=== PATIENT | female | born 1930 | race Caucasian/White ===

== ENCOUNTER 2016-11-22 08:00 | Outpatient (CLI) | payer MEDICARE ==
[2016-11-22 13:01] LABS: BASOPHILS # (AUTO) 0.1 10^3/uL (0.0-0.1); BASOPHILS % (AUTO) 0.8 %; EOSINOPHILS # (AUTO) 0.1 10^3/uL (0.0-0.7); EOSINOPHILS % (AUTO) 1.3 %; HCT - HEMATOCRIT 35.9 % (37.0-47.0); HGB - HEMOGLOBIN 12.5 g/dL (12.0-16.0); LYMPHOCYTES # (AUTO) 1.6 10^3/uL (1.5-3.5); LYMPHOCYTES % (AUTO) 24.5 %; MEAN CORPUSCULAR HEMOGLOBIN 32.7 pg (27.0-31.0); MEAN CORPUSCULAR HGB CONC 34.9 g/dL (32.0-36.0); MEAN CORPUSCULAR VOLUME 93.6 fL (81.0-99.0); MEAN PLATELET VOLUME 7.6 fL (7.9-10.8); MONOCYTES # (AUTO) 0.4 10^3/uL (0.0-1.0); MONOCYTES % (AUTO) 6.5 %; NEUTROPHILS # (AUTO) 4.5 10^3/uL (1.5-6.6); NEUTROPHILS % (AUTO) 66.9 %; NUCLEATED RED BLOOD CELLS AUTO 0.1 /100WBC; RED BLOOD COUNT 3.83 10^6/uL (4.20-5.40); RED CELL DISTRIBUTION WIDTH 12.6 % (12.0-15.0); UNCORRECTED WHITE BLOOD COUNT 6.7 x10^3/uL; WHITE BLOOD COUNT 6.7 x10^3/uL (4.8-10.8)
[2016-11-22 13:34] LABS: ALBUMIN/GLOBULIN RATIO 1.6 (1.0-2.2); BILIRUBIN,TOTAL 0.8 mg/dL (0.2-1.0); BUN - BLOOD UREA NITROGEN 23 mg/dL (6-20); CALCIUM 10.2 mg/dL (8.5-10.3); CARBON DIOXIDE - CO2 28 mmol/L (21-32); CHLORIDE 101 mmol/L (101-111); CHOL/HDL RATIO 4.9 (<4.4); CHOLESTEROL 290 mg/dL; CREATININE 1.2 mg/dL (0.4-1.0); GFR - MDRD 43 (>89); GLUCOSE 111 mg/dL (70-100); HDL CHOLESTEROL 59 mg/dL; LDL/HDL RATIO 3.1 (<4.4); POTASSIUM 4.1 mmol/L (3.5-5.0); SODIUM 140 mmol/L (135-145); TOTAL PROTEIN 8.3 g/dL (6.7-8.2); TRIGLYCERIDES 233 mg/dL; VLDL CHOLESTEROL 47 mg/dL
== END 2016-11-22 08:01 | disposition home or self-care (01) ==
LOC: LAB.WCP 08:00
PROVIDERS: ATTEND Family Medicine
DX: K21.9 Gastro-esophageal reflux disease without esophagitis (principal); E78.5 Hyperlipidemia, unspecified; D50.9 Iron deficiency anemia, unspecified
CPT/HCPCS: 36415; 80053; 80061; 85025

== ENCOUNTER → 2016-11-30 | Outpatient (CLI) | payer MEDICARE ==
[2016-11-30 13:51] LABS: THYROID STIMULATING HORMONE 1.09 uIU/mL (0.34-5.60)
== END ==
LOC: LAB.WCP 08:00
PROVIDERS: ATTEND Family Medicine
DX: R41.3 Other amnesia (principal)
CPT/HCPCS: 36415; 82607; 84443

== ENCOUNTER 2017-12-20 09:56 | Outpatient (CLI) | payer MEDICARE ==
[2017-12-20 12:51] LABS: BASOPHILS % (AUTO) 0.8 %; EOSINOPHILS # (AUTO) 0.1 10^3/uL (0.0-0.7); EOSINOPHILS % (AUTO) 1.9 %; HGB - HEMOGLOBIN 12.4 g/dL (12.0-16.0); LYMPHOCYTES # (AUTO) 1.6 10^3/uL (1.5-3.5); LYMPHOCYTES % (AUTO) 26.6 %; MEAN CORPUSCULAR HEMOGLOBIN 32.7 pg (27.0-31.0); MEAN CORPUSCULAR HGB CONC 33.9 g/dL (32.0-36.0); MEAN CORPUSCULAR VOLUME 96.5 fL (81.0-99.0); MEAN PLATELET VOLUME 7.6 fL (7.9-10.8); MONOCYTES # (AUTO) 0.4 10^3/uL (0.0-1.0); MONOCYTES % (AUTO) 5.8 %; NEUTROPHILS % (AUTO) 64.9 %; PLT - PLATELET COUNT 226 10^3/uL (130-450); RED CELL DISTRIBUTION WIDTH 13.2 % (12.0-15.0); WHITE BLOOD COUNT 6.2 x10^3/uL (4.8-10.8)
[2017-12-20 12:56] LABS: HB2 TOTAL 13.5 g/dL; HEMOGLOBIN A1C 0.49 g/dL; HEMOGLOBIN A1C % 5.5 % (4.6-6.2)
[2017-12-20 13:02] LABS: ALBUMIN 4.1 g/dL (3.2-5.5); ALBUMIN/GLOBULIN RATIO 1.1 (1.0-2.2); ALKALINE PHOSPHATASE 44 IU/L (42-121); ALT ALANINE AMINOTRANSFERASE 20 IU/L (10-60); AST ASPARTATE AMINOTRANSFERASE 20 IU/L (10-42); BILIRUBIN,TOTAL 0.6 mg/dL (0.2-1.0); BUN - BLOOD UREA NITROGEN 24 mg/dL (6-20); CALCIUM 9.6 mg/dL (8.5-10.3); CARBON DIOXIDE - CO2 27 mmol/L (21-32); CHLORIDE 103 mmol/L (101-111); CHOL/HDL RATIO 4.3 (<4.4); CHOLESTEROL 252 mg/dL; CREATININE 1.3 mg/dL (0.4-1.0); GFR - MDRD 39 (>89); GLUCOSE 106 mg/dL (70-100); HDL CHOLESTEROL 59 mg/dL; LDL CHOLESTEROL,CALCULATED 155 mg/dL; LDL/HDL RATIO 2.6 (<4.4); SODIUM 137 mmol/L (135-145); TOTAL PROTEIN 7.8 g/dL (6.7-8.2); VLDL CHOLESTEROL 38 mg/dL
== END 2017-12-20 09:57 | disposition home or self-care (01) ==
LOC: LAB.WCP 09:56
PROVIDERS: ATTEND Physician Assistant Medical
DX: E78.9 Disorder of lipoprotein metabolism, unspecified (principal); I10 Essential (primary) hypertension; R73.9 Hyperglycemia, unspecified; E78.5 Hyperlipidemia, unspecified
CPT/HCPCS: 36415; 80053; 80061; 83036; 83721; 85025

== ENCOUNTER 2019-01-09 08:00 | Outpatient (CLI) | payer MEDICARE ==
[2019-01-09 12:55] LABS: BASOPHILS % (AUTO) 0.4 %; EOSINOPHILS # (AUTO) 0.1 10^3/uL (0.0-0.7); EOSINOPHILS % (AUTO) 1.6 %; HGB - HEMOGLOBIN 12.3 g/dL (12.0-16.0); LYMPHOCYTES # (AUTO) 1.9 10^3/uL (1.5-3.5); LYMPHOCYTES % (AUTO) 27.1 %; MEAN CORPUSCULAR HGB CONC 32.5 g/dL (32.0-36.0); MEAN CORPUSCULAR VOLUME 98.7 fL (81.0-99.0); MEAN PLATELET VOLUME 9.8 fL (7.9-10.8); MONOCYTES # (AUTO) 0.6 10^3/uL (0.0-1.0); MONOCYTES % (AUTO) 9.2 %; NEUTROPHILS # (AUTO) 4.2 10^3/uL (1.5-6.6); NEUTROPHILS % (AUTO) 61.1 %; PLT - PLATELET COUNT 231 10^3/uL (130-450); RED BLOOD COUNT 3.84 10^6/uL (4.20-5.40); RED CELL DISTRIBUTION WIDTH 12.5 % (12.0-15.0); WHITE BLOOD COUNT 6.9 x10^3/uL (4.8-10.8)
[2019-01-09 13:13] LABS: HB2 TOTAL 13.7 g/dL; HEMOGLOBIN A1C 0.55 g/dL; HEMOGLOBIN A1C % 5.8 % (4.6-6.2)
[2019-01-09 13:31] LABS: % IRON SATURATION 30 % (20-50); ALBUMIN 4.5 g/dL (3.2-5.5); ALBUMIN/GLOBULIN RATIO 1.5 (1.0-2.2); ALKALINE PHOSPHATASE 45 IU/L (42-121); ALT ALANINE AMINOTRANSFERASE 16 IU/L (10-60); AST ASPARTATE AMINOTRANSFERASE 18 IU/L (10-42); BILIRUBIN,TOTAL 0.9 mg/dL (0.2-1.0); BUN - BLOOD UREA NITROGEN 26 mg/dL (6-20); CALCIUM 10.1 mg/dL (8.5-10.3); CARBON DIOXIDE - CO2 27 mmol/L (21-32); CHLORIDE 103 mmol/L (101-111); CHOL/HDL RATIO 4.5 (<4.4); CHOLESTEROL 255 mg/dL; CREATININE 1.2 mg/dL (0.4-1.0); GFR - MDRD 43 (>89); GLUCOSE 104 mg/dL (70-100); HDL CHOLESTEROL 57 mg/dL; IRON 95 ug/dL (28-170); LDL CHOLESTEROL,CALCULATED 161 mg/dL; LDL/HDL RATIO 2.8 (<4.4); SODIUM 140 mmol/L (135-145); TOTAL IRON BINDING CAPACITY 316 ug/dL (250-450); TOTAL PROTEIN 7.6 g/dL (6.7-8.2); TRANSFERRIN 226 mg/dL (192-382); VLDL CHOLESTEROL 37 mg/dL
[2019-01-09 14:18] LABS: PLATELET ESTIMATE, MANUAL NORMAL (130-450,000) (NORMAL); PLATELET MORPHOLOGY NORMAL APPEARANCE (NORMAL); RBC MORPHOLOGY (MULTIPLE) NORMAL APPEARANCE (NORMAL)
== END 2019-01-09 23:59 | disposition home or self-care (01) ==
LOC: LAB.WCP 08:00
PROVIDERS: ATTEND Family Medicine
DX: J44.9 Chronic obstructive pulmonary disease, unspecified (principal); I10 Essential (primary) hypertension; E78.5 Hyperlipidemia, unspecified; D50.9 Iron deficiency anemia, unspecified; K21.9 Gastro-esophageal reflux disease without esophagitis; R73.9 Hyperglycemia, unspecified
CPT/HCPCS: 36415; 80053; 80061; 82728; 83036; 83540; 83721; 84443; 84466; 85025

== ENCOUNTER 2020-05-15 08:00 | Outpatient (CLI) | payer MEDICARE ==
[2020-05-15 17:04] LABS: BILIRUBIN,URINE NEGATIVE (NEGATIVE); GLUCOSE, URINE (UA) NEGATIVE (NEGATIVE); KETONES,URINE (UA) NEGATIVE (NEGATIVE); LEUKOCYTE ESTERASE, URINE SMALL (NEGATIVE); NITRITE,URINE NEGATIVE (NEGATIVE); OCCULT BLOOD,URINE NEGATIVE (NEGATIVE); PH,URINE 6.5 PH (5.0-7.5); PROTEIN,URINE NEGATIVE (NEGATIVE); UROBILINOGEN,URINE 0.2 (NORMAL) E.U./dL (NORMAL)
[2020-05-15 17:16] LABS: CLARITY,URINE CLEAR (CLEAR)
[2020-05-15 17:17] LABS: BACTERIA,URINE Rare /HPF (None Seen); EPITHELIAL CELLS,UR FEW Transitional /HPF (<= Few); RBC,URINE None Seen /HPF (0-5); SQUAMOUS EPITHELIAL CELL,UR RARE Squamous (<= Few); WBC CLUMPS,URINE PRESENT
== END 2020-05-15 23:59 | disposition home or self-care (01) ==
LOC: LAB.N 08:00
PROVIDERS: ATTEND Family Medicine
DX: R10.9 Unspecified abdominal pain (principal)
CPT/HCPCS: 81001; 87086

== ENCOUNTER 2020-08-25 08:00 | Outpatient (CLI) | payer MEDICARE ==
[2020-08-25 18:29] LABS: BASOPHILS # (AUTO) 0.1 10^3/uL (0.0-0.1); BASOPHILS % (AUTO) 0.7 %; EOSINOPHILS # (AUTO) 0.1 10^3/uL (0.0-0.7); EOSINOPHILS % (AUTO) 1.4 %; HCT - HEMATOCRIT 40.1 % (37.0-47.0); HGB - HEMOGLOBIN 12.5 g/dL (12.0-16.0); LYMPHOCYTES # (AUTO) 1.5 10^3/uL (1.5-3.5); MEAN CORPUSCULAR HEMOGLOBIN 31.3 pg (27.0-31.0); MEAN CORPUSCULAR HGB CONC 31.2 g/dL (32.0-36.0); MEAN CORPUSCULAR VOLUME 100.3 fL (81.0-99.0); MEAN PLATELET VOLUME 9.5 fL (7.9-10.8); MONOCYTES # (AUTO) 0.5 10^3/uL (0.0-1.0); MONOCYTES % (AUTO) 6.1 %; NEUTROPHILS # (AUTO) 5.8 10^3/uL (1.5-6.6); NEUTROPHILS % (AUTO) 72.6 %; PLT - PLATELET COUNT 287 10^3/uL (130-450); RED CELL DISTRIBUTION WIDTH 12.7 % (12.0-15.0); WHITE BLOOD COUNT 8.1 x10^3/uL (4.8-10.8)
[2020-08-25 19:02] LABS: ALKALINE PHOSPHATASE 79 IU/L (42-121); ALT ALANINE AMINOTRANSFERASE 14 IU/L (10-60); AST ASPARTATE AMINOTRANSFERASE 14 IU/L (10-42); BILIRUBIN,TOTAL 0.8 mg/dL (0.2-1.0); BUN - BLOOD UREA NITROGEN 24 mg/dL (6-20); CALCIUM 9.9 mg/dL (8.5-10.3); CARBON DIOXIDE - CO2 30 mmol/L (21-32); CHLORIDE 101 mmol/L (101-111); CHOL/HDL RATIO 4.4 (<4.4); CHOLESTEROL 260 mg/dL; CREATININE 1.1 mg/dL (0.4-1.0); GFR - MDRD 47 (>89); GLUCOSE 156 mg/dL (70-100); HDL CHOLESTEROL 59 mg/dL; LDL CHOLESTEROL,CALCULATED 162 mg/dL; LDL/HDL RATIO 2.7 (<4.4); POTASSIUM 3.9 mmol/L (3.5-5.0); SODIUM 140 mmol/L (135-145); THYROID STIMULATING HORMONE 2.16 uIU/mL (0.34-5.60); TOTAL PROTEIN 7.9 g/dL (6.7-8.2); TRIGLYCERIDES 193 mg/dL; VLDL CHOLESTEROL 39 mg/dL
[2020-08-25 20:27] LABS: ESTIMATED AVERAGE GLUCOSE 120 mg/dL (70-100); HEMOGLOBIN A1c% 5.8 % (4.27-6.07)
== END 2020-08-25 23:59 | disposition home or self-care (01) ==
LOC: LAB.WCP 08:00
PROVIDERS: ATTEND Internal Medicine
DX: R60.9 Edema, unspecified (principal); D50.9 Iron deficiency anemia, unspecified; I10 Essential (primary) hypertension; R73.9 Hyperglycemia, unspecified; E78.5 Hyperlipidemia, unspecified; Z13.29 Encounter for screening for other suspected endocrine disorder
CPT/HCPCS: 36415; 80053; 80061; 82043; 82570; 83036; 83721; 84443; 85025

== ENCOUNTER 2020-08-26 08:00 | Outpatient (CLI) | payer MEDICARE ==
[2020-08-26 18:21] LABS: CREATININE,URINE 139.1 mg/dL; MICROALBUM/CREATININE RATIO,UR 13.7 ug/mg (<30.0); MICROALBUMIN,URINE 1.9 mg/dL (0-300.0)
== END 2020-08-26 23:59 | disposition home or self-care (01) ==
LOC: LAB.WCP 08:00
PROVIDERS: ATTEND Internal Medicine
DX: R73.9 Hyperglycemia, unspecified (principal)
CPT/HCPCS: 82043; 82570

== ENCOUNTER 2021-03-18 10:40 | Outpatient (CLI) | payer MEDICARE | END 2021-03-18 10:41 | disposition critical access hospital (66) | LOC: EMS 10:40 | DX: R53.1 Weakness (principal); R63.8 Other symptoms and signs concerning food and fluid intake | CPT/HCPCS: A0425; A0429 ==

== ENCOUNTER 2021-03-18 11:20 | Emergency (ER) | payer MEDICARE ==
[2021-03-18] MEDS ORDERED: SODIUM CHLORIDE 0.9% 1,000 ML IV STA ×2 (11:47→14:11)
--- NOTE | 2021-03-18 11:48 | ED Physician Documentation ---
History of Present Illness - Stated complaint Stated Complaint: Weakness - Chief complaint Chief Complaint: General - Additonal information Additional information: 89-year-old female, whose pmh is most significant for htn and hyperlipidemia, is brought to the emergency department for evaluation of increasing weakness and multiple falls. The patient states to this provider that she has lost her appetite over the last 3 days but is denying chest pain, soa, abdominal pain, nausea, vomiting, dysuria, urgency or frequency. She states that she has fallen multiple times recently but does not have any aches or pains in her joints or extremities. She states that she knows she needs to use a walker and does not always use it. There is no focal deficit. Patient states that she feels well otherwise. Review of Systems Constitutional: denies: Fever, Chills Eyes: reports: Reviewed and negative Nose: reports: Reviewed and negative Throat: reports: Reviewed and negative Cardiac: reports: Reviewed and negative Respiratory: reports: Reviewed and negative GI: denies: Abdominal Pain, Nausea, Vomiting, Diarrhea : denies: Dysuria, Frequency, Hesitancy Skin: denies: Rash, Lesions Musculoskeletal: denies: Neck pain, Back pain PD PAST MEDICAL HISTORY - Past Medical History Cardiovascular: Hypertension Respiratory: None Endocrine/Autoimmune: None GI: Chronic constipation : Frequency HEENT: Glaucoma Psych: None Musculoskeletal: Osteoarthritis, Osteoporosis Derm: None - Past Surgical History Past Surgical History: Yes Ortho: 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 HEENT: Cataracts - Present Medications Home Medications: Ambulatory Orders Medication Instructions Recorded Confirmed Amlodipine Besylate 10 mg PO DAILY 04/15/13 09/08/15 Aspirin 81 mg PO DAILY 04/15/13 09/08/15 Hydrochlorothiazide 25 mg PO DAILY 04/15/13 09/08/15 Cholecalciferol (Vitamin D3) 2,000 unit PO DAILY 03/25/15 09/08/15 [Vitamin D] Losartan [Cozaar] 50 mg PO DAILY 03/25/15 09/08/15 [place]-3 Fatty Acids [Fish Oil] 1,000 mg PO BID 03/25/15 09/08/15 Ipratropium [Atrovent] 2 puffs INH QID 08/13/15 09/08/15 Albuterol Sulfate [Proair Hfa] 2 puffs IH Q4H PRN 09/08/15 09/08/15 Ferrous Sulfate 325 mg PO DAILY 09/08/15 09/08/15 traMADol [Ultram] 50 mg PO Q4H PRN 09/08/15 09/08/15 - Allergies Allergies/Adverse Reactions: Allergies Allergy/AdvReac Type Severity Reaction Status Date / Time Knaswoa-YNE-PzU Reductase Allergy Unknown UNKNOWN Verified 03/18/21 11:25 Inhibitor [Xvwplaz-Glp-Ico Reductase Inhibitor] crab Allergy Rash Verified 03/18/21 11:25 nickel [Nickel] Allergy Rash Verified 03/18/21 11:25 Sulfa (Sulfonamide Allergy Rash Verified 03/18/21 11:25 Antibiotics) - Social History Does the pt smoke?: Yes Smoking Status: Current every day smoker Does the pt drink ETOH?: No Does the pt have substance abuse?: No - Immunizations Immunizations are current?: Yes PD ED PE EXPANDED - General General: Alert, No acute distress, Other (thin, cachetic appearance) - Cardiac Cardiac: Regular Rate, Murmur Present, Radial strong equal, Pedal strong equal, Cap refill < 2 sec - Respiratory Respiratory: Decreased breath sounds (left lung, otherwise CTA in right lung montoya). No: Distress, Labored - Back Back: Normal exam. No: Vertebral tenderness, Soft tissue tenderness - Neuro Neuro: Alert and Oriented X 3, CNII-XII intact - GCS Eye Opening: Spontaneous Motor: Obeys Commands Verbal: Oriented Total: 15 Results - Vitals Vitals: Vital Signs - 24 hr 03/18/21 03/18/21 03/18/21 11:25 12:40 14:40 Temperature 37.2 C Heart Rate 88 85 89 Respiratory 18 21 Rate Blood Pressure 119/57 L 119/69 O2 Saturation 98 95 Oxygen O2 Source Room air - EKG (time done) 1133 Rate: Rate (enter#) (87) Rhythm: NSR Evangeline: Normal Intervals: RBBB, Other (anteriro block) QRS: Poor R wave progression Ischemia: T wave inversion Compare to prior EKG: Changed from prior EKG Computer interpretation: Agree with computer - Labs Labs: Laboratory Tests 03/18/21 03/18/21 03/18/21 12:06 12:06 12:06 WBC 10.1 RBC 3.92 L Hgb 12.1 Hct 38.1 MCV 97.2 MCH 30.9 MCHC 31.8 L RDW 13.2 Plt Count 242 MPV 9.4 Neut # (Auto) 9.1 H Lymph # (Auto) 0.5 L Peach # (Auto) 0.5 Eos # (Auto) 0.0 Baso # (Auto) 0.0 Absolute Nucleated RBC 0.00 Nucleated RBC % 0.0 PT INR Sodium 141 Potassium 4.1 Chloride 99 L Carbon Dioxide 32 Anion Gap 10.0 BUN 40 H Creatinine 0.8 Estimated GFR (MDRD) 68 L Glucose 95 Calcium 9.9 Total Bilirubin 1.1 H AST 18 ALT 21 Alkaline Phosphatase 166 H Troponin I High Sens 16.4 H* B-Natriuretic Peptide Total Protein 7.4 Albumin 3.5 Globulin 3.9 Albumin/Globulin Ratio 0.9 L Lipase 27 TSH Urine Color Urine Clarity Urine pH Ur Specific [place] Urine Protein Urine Glucose (UA) Urine Ketones Urine Occult Blood Urine Nitrite Urine Bilirubin Urine Urobilinogen Ur Leukocyte Esterase Ur Microscopic Review Urine Culture Comments 03/18/21 03/18/21 03/18/21 12:06 12:06 12:06 WBC RBC Hgb Hct MCV MCH MCHC RDW Plt Count MPV Neut # (Auto) Lymph # (Auto) Peach # (Auto) Eos # (Auto) Baso # (Auto) Absolute Nucleated RBC Nucleated RBC % PT 13.8 H INR 1.2 Sodium Potassium Chloride Carbon Dioxide Anion Gap BUN Creatinine Estimated GFR (MDRD) Glucose Calcium Total Bilirubin AST ALT Alkaline Phosphatase Troponin I High Sens B-Natriuretic Peptide 61 Total Protein Albumin Globulin Albumin/Globulin Ratio Lipase TSH 1.91 Urine Color Urine Clarity Urine pH Ur Specific [place] Urine Protein Urine Glucose (UA) Urine Ketones Urine Occult Blood Urine Nitrite Urine Bilirubin Urine Urobilinogen Ur Leukocyte Esterase Ur Microscopic Review Urine Culture Comments 03/18/21 14:45 WBC RBC Hgb Hct MCV MCH MCHC RDW Plt Count MPV Neut # (Auto) Lymph # (Auto) Peach # (Auto) Eos # (Auto) Baso # (Auto) Absolute Nucleated RBC Nucleated RBC % PT INR Sodium Potassium Chloride Carbon Dioxide Anion Gap BUN Creatinine Estimated GFR (MDRD) Glucose Calcium Total Bilirubin AST ALT Alkaline Phosphatase Troponin I High Sens B-Natriuretic Peptide Total Protein Albumin Globulin Albumin/Globulin Ratio Lipase TSH Urine Color YELLOW Urine Clarity CLEAR Urine pH 5.5 Ur Specific [place] 1.020 Urine Protein NEGATIVE Urine Glucose (UA) NEGATIVE Urine Ketones NEGATIVE Urine Occult Blood NEGATIVE Urine Nitrite NEGATIVE Urine Bilirubin NEGATIVE Urine Urobilinogen 0.2 (NORMAL) Ur Leukocyte Esterase NEGATIVE Ur Microscopic Review NOT INDICATED Urine Culture Comments NOT INDICATED - Rads (name of study) CXR Radiology: Final report received (Moderate left-sided pleural effusion. Moderate cardiomegaly which is partially obscured. Hyperexpanded lungs. Postoperative and degenerative changes are seen.) CT chest Radiology: Final report received (Complete obstruction left lower lobe bronchus. Complete atelectasis of the left lower lobe. Abnormally enlarged mediastinal and left perihilar lymph nodes. A moderate to large left pleural effusion can be seen.), See rad report CT abd Radiology: Final report received (Bladder is enlarged. Moderate amount of stool within the colon. Mesenteric artery origin stenosis. LA is not well seen. Subtle sclerosis involving left iliac bone which may be related to metastatic disease to the bones.) PD MEDICAL DECISION MAKING - ED course Complexity details: reviewed results, d/w patient, d/w family ED course: 89-year-old female brought to the emergency department for evaluation of increased weakness over the last few weeks and multiple falls. Patient is also reporting new anorexia. Screening labs do not show any acute worrisome abnormalities. Urine shows no signs of infection. However her screening chest x-ray does show a very large pleural effusion. Given her age and smoking history as well as the recent complaints of generalized weakness CT imaging of the chest and abdomen was performed. Please see the full radiology report for full details. However unfortunately it does show a left bronchus occlusion likely secondary to a mass with resultant 100% complete atelectasis of the left lower lobe of the lung. She also has an associated large pleural effusion. CT of the abdomen did show sclerotic lesions within the iliac bone likely metastatic. The bladder was markedly enlarged however the patient is not obstructed and is able to void. We did catheterize her to obtain urine. I spoke with Dr. Mikala Tirado custom garment designer at [facility]. She agrees that the patient does need prompt work-up but would not recommend bandar bower today. Patient will be seen in clinic this week for further follow-up. I have discussed today's case with patient's son Raúl. He is aware that the mass likely represents metastatic cancer in the setting of his smoking history. He will be given the phone numbers for the pulmonary clinic and follow-up. Also advised close follow-up with PCP. Emergent return precautions were discussed. Departure - Departure Disposition: 01 Home, Self Care Clinical Impression: Pleural effusion, Bronchial obstruction, Pulmonary mass, Generalized weakness Record reviewed to determine appropriate education?: Yes Comments: Naomi was seen in the emergency department today for generalized weakness and increasing falls as well as loss of appetite. Unfortunately the imaging today shows that she likely has developed lung cancer which is causing obstruction of one of the bronchus in her left lung subsequently causing what is called a pleural effusion or fluid collection around the lung. In order to further diagnose and treat this she will need to be seen by a lung specialist. Dr. Mikala Tirado is a custom garment designer in [facility]. Her office will be giving you a phone call on Saturday. If you do not hear from them by noon on Saturday please call the office at [phone]. It is also very important that you continue to follow-up with Dr. Martinez her primary doctor who may also need to make appropriate referrals for her care. Naomi should continue to take the medication she is already prescribed by her doctor. If at any point she has labored breathing or any fainting episodes then please return immediately to the ER for a second evaluation
--- NOTE | 2021-03-18 12:06 | XRAY Report ---
PROCEDURE: Chest 1 View X-Ray INDICATIONS: Chest Pain TECHNIQUE: One view of the chest was acquired. COMPARISON: 03/25/2015, 11/17/2013, 04/15/2013 FINDINGS: Surgical changes and devices: Left shoulder arthroplasty hardware is seen. Lungs and pleura: The lungs are hyperexpanded. Generalized interstitial prominence can be seen. There is a moderately sized left-sided pleural effusion. Mediastinum: Mediastinal contours appear normal. Heart size is moderately enlarged, although obscur ed. Calcification is seen of the aortic arch. Bones and chest wall: No suspicious bony lesions. Age-appropriate degenerative changes are seen. S-s haped scoliotic curvature is incidentally noted. Overlying soft tissues appear unremarkable. IMPRESSION: Moderate left-sided pleural effusion. Moderate cardiomegaly, which is partially obscured. Hyperexpanded lungs. Postoperative and degenerative changes are seen. Reviewed by: Filiberto Plascencia MD on 03/18/2021 11:05 AM MESERET Approved by: Filiberto Plascencia MD on 03/18/2021 11:05 AM MESERET Station ID: [id number]
[2021-03-18 12:12] LABS: BASOPHILS % (AUTO) 0.2 %; EOSINOPHILS % (AUTO) 0.2 %; HCT - HEMATOCRIT 38.1 % (37.0-47.0); HGB - HEMOGLOBIN 12.1 g/dL (12.0-16.0); LYMPHOCYTES # (AUTO) 0.5 10^3/uL (1.5-3.5); LYMPHOCYTES % (AUTO) 4.8 %; MEAN CORPUSCULAR HEMOGLOBIN 30.9 pg (27.0-31.0); MEAN CORPUSCULAR HGB CONC 31.8 g/dL (32.0-36.0); MEAN CORPUSCULAR VOLUME 97.2 fL (81.0-99.0); MEAN PLATELET VOLUME 9.4 fL (7.9-10.8); MONOCYTES # (AUTO) 0.5 10^3/uL (0.0-1.0); MONOCYTES % (AUTO) 4.9 %; NEUTROPHILS # (AUTO) 9.1 10^3/uL (1.5-6.6); NEUTROPHILS % (AUTO) 89.5 %; PLT - PLATELET COUNT 242 10^3/uL (130-450); RED BLOOD COUNT 3.92 10^6/uL (4.20-5.40); RED CELL DISTRIBUTION WIDTH 13.2 % (12.0-15.0); WHITE BLOOD COUNT 10.1 x10^3/uL (4.8-10.8)
[2021-03-18 12:25] LABS: INR 1.2 (0.8-1.2); PT - PROTHROMBIN TIME 13.8 secs (9.9-12.6)
[2021-03-18] MEDS ORDERED: IOVERSOL 320 100 ML VIAL IVP ONE ×2 (12:31→13:52)
[2021-03-18 12:34] LABS: ALBUMIN 3.5 g/dL (3.2-5.5); ALBUMIN/GLOBULIN RATIO 0.9 (1.0-2.2); BILIRUBIN,TOTAL 1.1 mg/dL (0.2-1.0); CALCIUM 9.9 mg/dL (8.5-10.3); CREATININE 0.8 mg/dL (0.4-1.0); POTASSIUM 4.1 mmol/L (3.5-5.0); TOTAL PROTEIN 7.4 g/dL (6.7-8.2)
--- NOTE | 2021-03-18 13:17 | CT Report ---
PROCEDURE: CHEST W INDICATIONS: pleural effusion CONTRAST: IV CONTRAST: Optiray 320 ml: 100 PO CONTRAST: *NO PO CONTRAST TECHNIQUE: After the administration of intravenous contrast, 1 mm axial images were acquired from the pulmonary apices through the posterior costophrenic angles. Axial 5 mm soft tissue kernel reconstructions were performed as well as 8 mm axial MIP and coronal and sagittal 5 mm reformations. For radiation dose reduction, the following was used: automated exposure control, adjustment of mA and/or kV according to patient size. COMPARISON: Relation is made with prior chest radiograph, 03/18/2021. Correlation is also made with t he accompanying abdomen pelvis CT, 03/18/2021. FINDINGS: Image quality: There is artifact associated with the metallic hardware. Lungs and pleura: There is a moderate to prominent left-sided pleural effusion. There is obstruction of the left lower lobe bronchus, with complete atelectasis of the left lower lobe. Generalized inter stitial prominence can be seen involving the left upper lung. The right lung appears clear, without i nfiltrates or pleural effusions. No pneumothorax can be seen on either side. Underlying centrilobular 7 us changes can be seen. Mediastinum: Heart size is normal. No pericardial effusion. Enlarged left mediastinal lymph nodes and left perihilar lymph nodes are seen including a left perihi lar lymph nodes that measures up to 3.2 cm. There is associated mass effect upon the left upper lobe pulmonary arteries. No pulmonary artery filling defect can be seen to suggest pulmonary embolism. Esophagus is normal in caliber. No hiatal hernia. Bones and chest wall: Left shoulder arthroplasty hardware is seen. Several sclerotic lesions can be s een within the thoracic vertebral bodies. More subtle areas of sclerosis can be seen involving the ri bs. No vertebral body compression fractures. Relatively prominent generalized bony degenerative murguia es are seen. Focal L1-L2 degenerative change is seen. No axillary or supraclavicular adenopathy by si ze criteria. The thyroid is normal in size and there are no incidental findings. Abdomen: Diffuse fatty liver infiltration can be seen. Visualized upper abdominal solid organs pool ear normal. Upper abdominal bowel loops are normal in caliber. IMPRESSION: Complete obstruction of the left lower lobe bronchus, with complete atelectasis of the left lower lob e. Abnormally enlarged mediastinal and left perihilar lymph nodes are seen. Mass effect can be seen upon the left upper lobe pulmonary artery, which narrows it. Metastatic disease is suspected. Sclerotic foci can be seen involving the vertebral bodies and to a lesser extent the ribs. Sclerotic metastatic disease is suspected. A moderate to large left pleural effusion can be seen. Generalized interstitial prominence can be seen involving the left upper lobe, which may related to a telectasis or infiltrate. Underlying emphysematous changes are seen. Incidental note is made of: Left shoulder arthroplasty hardware Focal L1-L2 degenerative change Reviewed by: Filiberto Plascencia MD on 03/18/2021 12:16 PM MESERET Approved by: Filiberto Plascencia MD on 03/18/2021 12:16 PM MESERET Station ID: [id number]
--- NOTE | 2021-03-18 13:23 | CT Report ---
PROCEDURE: Abdomen/Pelvis W INDICATIONS: pleural effusion, loss of appetitie CONTRAST: IV CONTRAST: Optiray 320 ml: 100 PO CONTRAST: *NO PO CONTRAST TECHNIQUE: After the administration of IV contrast, 5 mm thick sections acquired from the diaphragms to the symp hysis. 5 mm thick coronal and sagittal reformats were acquired. For radiation dose reduction, the f ollowing was used: automated exposure control, adjustment of mA and/or kV according to patient size. COMPARISON: Correlation is made with the accompanying chest CT, 03/18/2021. FINDINGS: Image quality: Excellent. ABDOMEN: Lung bases: A moderate to large left-sided pleural effusion can be seen. Heart size is normal. Solid organs: Liver and spleen are normal in size and enhancement. Gallbladder demonstrates no sign ificant CT abnormality Biliary system is non dilated. Pancreas enhances normally. No adrenal nodul es. Kidneys demonstrate normal size and enhancement, without hydronephrosis. Peritoneum and bowel: Bowel loops demonstrate normal wall thickness and caliber. No free fluid or a ir. There is a moderate amount of stool seen within the colon. Nodes and vessels: No retroperitoneal or mesenteric adenopathy by size criteria. Aorta and inferior vena cava are normal in size. Atherosclerotic calcification is seen. Prominent atherosclerotic calc ification can be seen involving the origin of the celiac axis, with approximately 80% narrowing. Ther e is proximal to 60% narrowing seen involving the origin of the SMA. The LA is not well seen. Miscellaneous: No ventral hernias. PELVIS: Genitourinary: Bladder wall thickness is normal. There are bladder is enlarged. The uterus appears atrophic. Miscellaneous: No inguinal hernias or adenopathy. 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 Subtle scl erosis can be seen involving the left iliac bone medially. No vertebral body compression fractures. A ge-appropriate degenerative changes are seen, which are worst at the L1-L2 level. Mild levoconvex sc oliotic curvature is seen. IMPRESSION: There are bladder is enlarged. Please consider bladder outlet obstruction. There is a moderate amount of stool seen within the colon. Please correlate with clinical constipatio n. Mesenteric artery origin stenosis. The LA is not well seen. Subtle sclerosis can be seen involving the left iliac bone medially, which may be related to metastat ic disease to the bones. Incidental note is made of: Atherosclerotic calcification Focal L1-L2 degenerative change Reviewed by: Filiberto Plascencia MD on 03/18/2021 12:21 PM AKMARY JO Approved by: Filiberto Plascencia MD on 03/18/2021 12:21 PM MESERET Station ID: [id number]
[2021-03-18 14:52] LABS: BILIRUBIN,URINE NEGATIVE (NEGATIVE); GLUCOSE, URINE (UA) NEGATIVE (NEGATIVE); KETONES,URINE (UA) NEGATIVE (NEGATIVE); LEUKOCYTE ESTERASE, URINE NEGATIVE (NEGATIVE); NITRITE,URINE NEGATIVE (NEGATIVE); OCCULT BLOOD,URINE NEGATIVE (NEGATIVE); PH,URINE 5.5 PH (5.0-7.5); PROTEIN,URINE NEGATIVE (NEGATIVE); UROBILINOGEN,URINE 0.2 (NORMAL) E.U./dL (NORMAL)
[2021-03-18 14:53] LABS: CLARITY,URINE CLEAR (CLEAR)
[2021-03-18 16:45] VITALS: BP 150/79
== END 2021-03-18 16:35 | disposition home or self-care (01) ==
LOC: ED 11:20
DX: J90 Pleural effusion, not elsewhere classified (principal); J98.09 Other diseases of bronchus, not elsewhere classified; J98.11 Atelectasis; R91.8 Other nonspecific abnormal finding of lung field; F17.200 Nicotine dependence, unspecified, uncomplicated; M89.9 Disorder of bone, unspecified; R53.1 Weakness; R29.6 Repeated falls; R63.0 Anorexia; I45.2 Bifascicular block; I10 Essential (primary) hypertension; E78.5 Hyperlipidemia, unspecified; Z79.82 Long term (current) use of aspirin
CPT/HCPCS: 36415; 51702; 71045; 71260; 74177; 80053; 81003; 83690; 83880; 84443; 84484; 85025; 85610; 93005; 99284; Q9967; 81001; 87086

== ENCOUNTER 2021-03-21 18:02 | Outpatient (CLI) | payer MEDICARE | END 2021-03-21 18:03 | disposition short-term general hospital (02) | LOC: EMS 18:02 | DX: L89.309 Pressure ulcer of unspecified buttock, unspecified stage (principal); R53.1 Weakness; R53.83 Other fatigue | CPT/HCPCS: A0425; A0429 ==